=== PATIENT | female | born 1995 | race Two or more races ===

== ENCOUNTER 2018-06-22 12:26 | Emergency (ER) | payer SELFPAY ==
--- NOTE | 2018-06-22 12:58 | ER Document Report ---
ED Psych Disorder / Suicide <JEANINE GUTHRIEI - Last Filed: 06/22/18 18:30> <HOANG LINDER - Last Filed: 06/22/18 19:10> - General Chief Complaint: Suicidal Ideation Stated Complaint: SI Time Seen by Provider: 06/22/18 12:50 Notes: 22-year-old female to the emergency department by [facility] from primary care doctor's office for evaluation of suicidal ideation. Patient states that she has had depression since the age of 15. Has been on and off medications. States that she has a gun in her boyfriend's car and knows how to use it and wants to kill herself (HOANG LINDER) - Related Data Allergies/Adverse Reactions: No Known Allergies Allergy (Unverified 06/22/18 12:29) Past Medical History - General Information source: Patient - Social History Smoking Status: Former Smoker Chew tobacco use (# tins/day): No Frequency of alcohol use: None Drug Abuse: None Lives with: Family Family History: Reviewed & Not Pertinent Patient has suicidal ideation: Yes Patient has homicidal ideation: No Renal/ Medical History: Denies: Hx Peritoneal Dialysis Psychiatric Medical History: Reports: Hx Depression - Anxiety, PTSD, suicidal ideation Past Surgical History: Reports: Hx Tonsillectomy - adnoids <HOANG LINDER - Last Filed: 06/22/18 19:10> Review of Systems - Review of Systems Constitutional: No symptoms reported EENT: No symptoms reported Cardiovascular: No symptoms reported Respiratory: No symptoms reported Gastrointestinal: No symptoms reported Genitourinary: No symptoms reported Female Genitourinary: No symptoms reported Musculoskeletal: No symptoms reported Skin: No symptoms reported Hematologic/Lymphatic: No symptoms reported Neurological/Psychological: Depression, Hallucinations, Other - Suicidal <HOANG LINDER - Last Filed: 06/22/18 19:10> Physical Exam - Vital signs Interpretation: Normal - General General appearance: Appears well, Alert - HEENT Head: Normocephalic, Atraumatic Eyes: Normal Pupils: PERRL - Respiratory Respiratory status: No respiratory distress Chest status: Nontender Breath sounds: Normal Chest palpation: Normal - Cardiovascular Rhythm: Regular Heart sounds: Normal auscultation Murmur: No - Abdominal Inspection: Normal Distension: No distension Bowel sounds: Normal Tenderness: Nontender Organomegaly: No organomegaly - Back Back: Normal, Nontender - Extremities General upper extremity: Normal inspection, Nontender, Normal color, Normal ROM , Normal temperature General lower extremity: Normal inspection, Nontender, Normal color, Normal ROM , Normal temperature, Normal weight bearing. No: Ambreen's sign - Neurological Neuro grossly intact: Yes Cognition: Normal Orientation: AAOx4 Michele Coma Scale Eye Opening: Spontaneous [place] Coma Scale Verbal: Oriented [place] Coma Scale Motor: Obeys Commands Michele Coma Scale Total: 15 Speech: Normal Motor strength normal: LUE, RUE, LLE, RLE Sensory: Normal - Psychological Associated symptoms: Anxious, Auditory hallucinations, Depressed, Flat affect, Tearful - Skin Skin Temperature: Warm Skin Moisture: Dry Skin Color: Normal <HOANG LINDER - Last Filed: 06/22/18 19:10> - Vital signs Vitals: Temp Pulse Resp BP Pulse Ox 98.6 F 85 18 125/79 100 06/22/18 12:33 06/22/18 12:33 06/22/18 12:33 06/22/18 12:33 06/22/18 12:33 Course - Laboratory Result Diagrams: 06/22/18 14:10 06/22/18 14:10 <BONIFACIO GUTHRIE - Last Filed: 06/22/18 18:30> - Laboratory Result Diagrams: 06/22/18 14:10 06/22/18 14:10 <HOANG LINDER - Last Filed: 06/22/18 19:10> - Re-evaluation Re-evalutation: 06/22/18 14:06 Vision with active auditory hallucinations by her account with suicidal ideation. Will need to be placed on IVC at this time. Health is aware. Psych screening labs ordered. 06/22/18 19:07 Mental health has done extensive evaluation on the patient. They have made medication change and recommendations. They do not feel patient needs to be hospitalized at this time. Patient has outpatient resources. Family members have been contacted as well and they are comfortable with the plan. The gun has been removed from patient's access. The patient is happy about the medication recommendation changes. Has follow-up appointment made and available. At this time will follow these recommendations as this is the best we have at this time. Patient has been given instructions that if anything else gets worse that we are always here and we want to see her again. Patient verbalized understanding of these instructions and we will discharge at this time in stable condition. (HOANG LINDER) - Vital Signs Vital signs: Temp Pulse Resp BP Pulse Ox 98.3 F 78 18 122/77 99 06/22/18 17:37 06/22/18 17:37 06/22/18 17:37 06/22/18 17:37 06/22/18 17:37 - Laboratory Laboratory results interpreted by me: 06/22/18 06/22/18 14:10 14:10 RDW 14.4 H Salicylates < 1.0 L Acetaminophen < 10 L Discharge <BONIFACIO GUTHRIE - Last Filed: 06/22/18 18:30> <HOANG LINDER - Last Filed: 06/22/18 19:10> - Discharge Clinical Impression: Post traumatic stress disorder (PTSD) Condition: Good Disposition: HOME, SELF-CARE Additional Instructions: You were seen in the emergency department and evaluated by the medical and behavioral health teams for suicidal ideation, and determined to be appropriate for discharge. You were provided community based outpatient resources and you are encouraged to follow up with [facility] and [facility] for medication management and therapy. You were also provided medications scripts and are encouraged to discuss with provider the effectiveness of medications when you meet with the physician. Medication Recommendations 1. Effexor 37.5 mg daily 2. Buspar 10 mg twice per day DEPRESSION: Your evaluation reveals that you have depression. While symptoms may be vague, they often include disturbance of sleep, fatigue, loss of appetite, and general loss of interest in life. While depression may be a side effect of drugs, or a reaction to a major change in your life, many cases have no known cause. If depression is acute, and related to a major loss in your life, you can expect it to clear completely with time. If you have been depressed a long time , are prone to repeated bouts of depression or low mood, or have been thinking of suicide, get help. Depression can be treated with anti-depressant medication and counselling. Long-term depression will often take a few weeks to clear, even with appropriate medication. Follow-up care is important. SUICIDAL IDEATION: Suicidal ideation is a common medical term for thoughts about suicide, which may be as detailed as a formulated plan, without the suicidal act itself. Although most people who undergo suicidal ideation do not commit suicide, some go on to make suicide attempts. The range of suicidal ideation varies greatly from fleeting to detailed planning, role playing, and unsuccessful attempts. While thoughts about suicide are common, most people do not carry out serious actions to commit suicide. Based upon your evaluation and discussion with you, we do not believe you are currently at risk to act upon your thoughts of suicide. You have agreed to return to the Emergency Department, at any time , if you feel inclined to act upon your suicidal thoughts. Post-Traumatic Stress Disorder You seem to have post-traumatic stress disorder (PTSD). PTSD can cause chronic anxiety, sleeping problems, social withdrawal, and drug abuse. It can occur following a traumatic personal experience such as an accident, rape, assault, or of a loved one, or after experiencing a war or natural disaster. Symptoms may be delayed for days or even years. Emotional numbing, the inability to express grief, is usually the earliest sign. There may be apathy or agitation, aggression, and inability to perform ordinary tasks. Often there are frightening nightmares and sudden, intruding memories of the trauma. Panic attacks and feelings of guilt are common. Alcohol and drug use make post- traumatic stress symptoms worse. Medication may be temporarily necessary to combat anxiety, panic attacks, and depression. Medicine should not be considered a "cure." You must deal with the trauma and prepare to go on. Group therapy is often helpful. This helps you "talk through" the problem with others who share your symptoms. FOLLOW-UP CARE: If you have been referred to a physician for follow-up care, call the physician s office for an appointment as you were instructed or within the next two days. If you experience worsening or a significant change in your symptoms, notify the physician immediately or return to the Emergency Department at any time for re-evaluation. Prescriptions: Buspirone HCl [Buspar 10 mg Tablet] 10 mg PO BID 7 Days #14 tablet Venlafaxine HCl ER [Effexor Xr 37.5 mg Cap.sr] 37.5 mg PO DAILY 7 Days #7 cap.sr.24h Referrals: [facility] [Provider Group] - Follow up in 1 week [facility] [Provider Group] - Follow up in 1 week STANLEY BACON NP [Primary Care Provider] - Follow up in 3-5 days
[2018-06-22 14:33] LABS: ABSOLUTE BASOPHILS # (AUTO) 0.1 10^3/uL (0.0-0.2); ABSOLUTE EOSINOPHILS # (AUTO) 0.2 10^3/uL (0.0-0.6); ABSOLUTE LYMPHOCYTES (AUTO) 1.5 10^3/uL (0.5-4.7); ABSOLUTE MONOCYTES (AUTO) 0.5 10^3/uL (0.1-1.4); ABSOLUTE NEUT (AUTO) 5.1 10^3/uL (1.7-8.2); BASOPHILS % (AUTO) 1.1 % (0-2); EOSINOPHILS % (AUTO) 2.7 % (0-6); HEMATOCRIT 41.2 % (36.0-47.0); HEMOGLOBIN 14.1 g/dL (12.0-15.5); LYMPHOCYTES % (AUTO) 20.4 % (13-45); MEAN CORPUSCULAR HEMOGLOBIN 29.3 pg (27.0-33.4); MEAN CORPUSCULAR HGB CONC 34.1 g/dL (32.0-36.0); MEAN CORPUSCULAR VOLUME 86 fl (80-97); MONOCYTES % (AUTO) 6.2 % (3-13); PLATELET COUNT 363 10^3/uL (150-450); RED CELL DISTRIBUTION WIDTH 14.4 % (11.5-14.0); SEGMENTED NEUTROPHILS % (AUTO) 69.6 % (42-78); TOTAL CELLS COUNTED % (AUTO) 100 %; WHITE BLOOD COUNT 7.4 10^3/uL (4.0-10.5)
[2018-06-22 14:56] LABS: ALANINE AMINOTRANSFERASE 17 U/L (9-52); ALKALINE PHOSPHATASE 50 U/L (38-126); ANION GAP 11 (5-19); ASPARTATE AMINO TRANSFERASE 18 U/L (14-36); BILIRUBIN,DIRECT 0.2 mg/dL (0.0-0.4); BILIRUBIN,TOTAL 0.7 mg/dL (0.2-1.3); BLOOD UREA NITROGEN 7 mg/dL (7-20); CALCIUM 9.4 mg/dL (8.4-10.2); CARBON DIOXIDE 28 mmol/L (22-30); CHLORIDE 104 mmol/L (98-107); GLUCOSE 76 mg/dL (75-110); POTASSIUM 4.4 mmol/L (3.6-5.0); TOTAL PROTEIN 7.4 g/dL (6.3-8.2)
[2018-06-22 14:59] LABS: ACETAMINOPHEN < 10 ug/mL (10-30); ALCOHOL < 10 mg/dL (NONE DETECTED); SALICYLATE < 1.0 mg/dL (2.0-20.0)
[2018-06-22 15:38] LABS: APPEARANCE,URINE CLEAR; BILIRUBIN,URINE NEGATIVE (NEGATIVE); COLOR,URINE YELLOW; GLUCOSE, URINE NEGATIVE (NEGATIVE); KETONES,URINE NEGATIVE (NEGATIVE); LEUKOCYTE ESTERASE,URINE NEGATIVE (NEGATIVE); NITRITE,URINE NEGATIVE (NEGATIVE); PROTEIN,URINE NEGATIVE (NEGATIVE); URINE SPECIFIC GRAVITY 1.014; UROBILINOGEN,URINE NEGATIVE mg/dL (<2.0)
[2018-06-22 15:54] LABS: URINE AMPHETAMINES SCREEN NEGATIVE; URINE BARBITURATES SCREEN NEGATIVE; URINE BENZODIAZEPINES SCREEN UNCONFIRMED POSITIVE; URINE COCAINE SCREEN NEGATIVE; URINE MARIJUANA (THC) SCREEN NEGATIVE; URINE METHADONE SCREEN NEGATIVE; URINE PHENCYCLIDINE SCREEN NEGATIVE
[2018-06-22 17:58] VITALS: BP 122/77
--- NOTE | 2018-06-22 23:38 | EKG REPORT ---
SEVERITY:- NORMAL ECG - SINUS RHYTHM : Confirmed by: Madeline Santillan MD 22-Jun-2018 23:37:57
== END 2018-06-22 19:37 | disposition home or self-care (01) ==
LOC: ER 12:26
DX: F43.10 Post-traumatic stress disorder, unspecified (principal); R45.851 Suicidal ideations
CPT/HCPCS: 36415; 80053; 80307; 81001; 84703; 85025; 93005; 93010; 99285

== ENCOUNTER 2019-08-10 13:57 | Inpatient (IN) | payer MEDICAID ==
[2019-08-10 14:49] LABS: APPEARANCE,URINE CLOUDY; BILIRUBIN,URINE NEGATIVE (NEGATIVE); COLOR,URINE YELLOW; GLUCOSE, URINE NEGATIVE (NEGATIVE); KETONES,URINE NEGATIVE (NEGATIVE); LEUKOCYTE ESTERASE,URINE LARGE (NEGATIVE); NITRITE,URINE NEGATIVE (NEGATIVE); PROTEIN,URINE 100 mg/dL (NEGATIVE); UROBILINOGEN,URINE NEGATIVE mg/dL (<2.0)
[2019-08-10 15:00] LABS: URINE AMPHETAMINES SCREEN NEGATIVE; URINE BARBITURATES SCREEN NEGATIVE; URINE BENZODIAZEPINES SCREEN NEGATIVE; URINE COCAINE SCREEN NEGATIVE; URINE MARIJUANA (THC) SCREEN NEGATIVE; URINE METHADONE SCREEN NEGATIVE; URINE PHENCYCLIDINE SCREEN NEGATIVE
[2019-08-10 15:14] LABS: URINE CREATININE 110.7 mg/dL (16-327)
[2019-08-10] MEDS ORDERED: MAG HYDROX/AL HYDROX/SIMETH SUSP 30 ML UDCUP PO ONE (15:18)
[2019-08-10 15:21] LABS: UR PRO/CREAT RATIO RESULT 2.8 mg/mg (0.0-0.2); URINE PROTEIN 314.6 mg/dL (<12)
[2019-08-10 15:40] LABS: ABSOLUTE EOSINOPHILS # (AUTO) 0.2 10^3/uL (0.0-0.6); ABSOLUTE LYMPHOCYTES (AUTO) 0.9 10^3/uL (0.5-4.7); ABSOLUTE MONOCYTES (AUTO) 0.6 10^3/uL (0.1-1.4); ABSOLUTE NEUT (AUTO) 6.7 10^3/uL (1.7-8.2); BASOPHILS % (AUTO) 0.5 % (0-2); EOSINOPHILS % (AUTO) 2.5 % (0-6); HEMATOCRIT 38.8 % (36.0-47.0); HEMOGLOBIN 13.3 g/dL (12.0-15.5); LYMPHOCYTES % (AUTO) 10.8 % (13-45); MEAN CORPUSCULAR HEMOGLOBIN 29.7 pg (27.0-33.4); MEAN CORPUSCULAR HGB CONC 34.3 g/dL (32.0-36.0); MEAN CORPUSCULAR VOLUME 87 fl (80-97); MONOCYTES % (AUTO) 7.6 % (3-13); PLATELET COUNT 200 10^3/uL (150-450); RED BLOOD COUNT 4.47 10^6/uL (3.72-5.28); SEGMENTED NEUTROPHILS % (AUTO) 78.6 % (42-78); TOTAL CELLS COUNTED % (AUTO) 100 %; WHITE BLOOD COUNT 8.6 10^3/uL (4.0-10.5)
[2019-08-10 15:59] LABS: ALBUMIN 2.9 g/dL (3.5-5.0); ALKALINE PHOSPHATASE 88 U/L (38-126); ANION GAP 8 (5-19); ASPARTATE AMINO TRANSFERASE 20 U/L (14-36); BILIRUBIN,DIRECT 0.1 mg/dL (0.0-0.4); BILIRUBIN,TOTAL 0.5 mg/dL (0.2-1.3); BLOOD UREA NITROGEN 8 mg/dL (7-20); CARBON DIOXIDE 21 mmol/L (22-30); CHLORIDE 105 mmol/L (98-107); GLUCOSE 101 mg/dL (75-110); POTASSIUM 4.1 mmol/L (3.6-5.0); TOTAL PROTEIN 5.3 g/dL (6.3-8.2)
[2019-08-10] MEDS ORDERED: CEFTRIAXONE INJ 1000 MG VIAL IM ONE ×2 (16:55→17:30)
[2019-08-10] MEDS ORDERED: LIDOCAINE 1% INJ-PF (10 MG/ML) 30 ML SDV INJ ONE (16:55)
[2019-08-10] MEDS ORDERED: LIDOCAINE HCL 1% INJ (FOR 1 GM VIAL) INJ ONE (17:30)
[2019-08-10] MEDS ORDERED: MAG HYDROX/AL HYDROX/SIMETH SUSP 30 ML UDCUP ONE (17:51)
--- NOTE | 2019-08-10 20:02 | Non Stress Test Report ---
Non Stress Test Datetime Report Generated by CPN: 08/10/2019 20:02 MONITORING Monitor Explained: Monitor Explained; Test Explained; Patient Verbalized Understanding Time on Monitor: 08/10/2019 15:46 Time off Monitor: 08/10/2019 16:24 NST Duration: 38 NST INTERVENTIONS NST Interventions: PO Hydration; Reposition Patient Physician Notified NST: DR CEJA BABY A: [id number] BABY A Movement : Present Contraction Frequency : IRREG FHR Baseline : 135 Accelerations : 15X15 Decelerations : None Variability : Moderate 6-25bpm NST Review: Meets Criteria for Reactive NST NST Review and Verified By : Joann Yates RN NST Results: Reactive NST REPORT Report Trigger: Send Report
[2019-08-11] MEDS ORDERED: ACETAMINOPHEN 325 MG TABLET ONE (03:56)
[2019-08-11] MEDS ORDERED: ACETAMINOPHEN 325 MG TABLET PO PRN (04:01)
[2019-08-11 06:27] LABS: ABSOLUTE BASOPHILS # (AUTO) 0.1 10^3/uL (0.0-0.2); ABSOLUTE EOSINOPHILS # (AUTO) 0.3 10^3/uL (0.0-0.6); ABSOLUTE LYMPHOCYTES (AUTO) 1.6 10^3/uL (0.5-4.7); ABSOLUTE MONOCYTES (AUTO) 0.8 10^3/uL (0.1-1.4); ABSOLUTE NEUT (AUTO) 6.5 10^3/uL (1.7-8.2); BASOPHILS % (AUTO) 0.5 % (0-2); EOSINOPHILS % (AUTO) 3.4 % (0-6); HEMOGLOBIN 12.4 g/dL (12.0-15.5); LYMPHOCYTES % (AUTO) 17.4 % (13-45); MEAN CORPUSCULAR HEMOGLOBIN 30.3 pg (27.0-33.4); MEAN CORPUSCULAR HGB CONC 35.3 g/dL (32.0-36.0); MEAN CORPUSCULAR VOLUME 86 fl (80-97); MONOCYTES % (AUTO) 8.5 % (3-13); PLATELET COUNT 179 10^3/uL (150-450); RED BLOOD COUNT 4.08 10^6/uL (3.72-5.28); RED CELL DISTRIBUTION WIDTH 14.3 % (11.5-14.0); SEGMENTED NEUTROPHILS % (AUTO) 70.2 % (42-78); TOTAL CELLS COUNTED % (AUTO) 100 %; WHITE BLOOD COUNT 9.2 10^3/uL (4.0-10.5)
[2019-08-11 06:43] LABS: ALBUMIN 2.6 g/dL (3.5-5.0); ALKALINE PHOSPHATASE 84 U/L (38-126); ANION GAP 7 (5-19); ASPARTATE AMINO TRANSFERASE 19 U/L (14-36); BILIRUBIN,DIRECT 0.1 mg/dL (0.0-0.4); BILIRUBIN,TOTAL 0.5 mg/dL (0.2-1.3); BLOOD UREA NITROGEN 7 mg/dL (7-20); CARBON DIOXIDE 20 mmol/L (22-30); CHLORIDE 107 mmol/L (98-107); GLUCOSE 74 mg/dL (75-110); POTASSIUM 4.4 mmol/L (3.6-5.0); TOTAL PROTEIN 4.9 g/dL (6.3-8.2); URIC ACID 6.8 mg/dL (2.5-6.2)
[2019-08-11] MEDS ORDERED: OXYTOCIN/NORMAL SALINE 20 UNIT/1,000 ML RTUINJ IV PRN (10:33)
[2019-08-11] MEDS ORDERED: RINGERS SOLUTION,LACTATED 300 ML IV ONE (10:33)
[2019-08-11] MEDS ORDERED: DINOPROSTONE 10 MG VAGINAL INSERT.SR PV PRN (10:33)
--- NOTE | 2019-08-11 10:36 | PDOC PROGRESS REPORT ---
Subjective Progress Note for:: 08/11/19 Subjective:: We discussed the diagnosis of mild preeclampsia. She would like to start the induction tonight. Reason For Visit: Physical Exam - Physical Exam Vital Signs: Temp Pulse Resp BP Pulse Ox 97.5 F 89 20 139/95 H 96 08/11/19 08:03 08/11/19 08:03 08/11/19 08:03 08/11/19 08:03 08/11/19 08:03 Intake & Output 08/10/19 08/11/19 08/12/19 06:59 06:59 06:59 Intake Total 580 Balance 580 Weight 79.8 kg Result Laboratory Results: 08/11/19 05:43 08/11/19 05:43 08/10/19 08/10/19 08/10/19 14:15 15:06 15:06 WBC 8.6 RBC 4.47 Hgb 13.3 Hct 38.8 MCV 87 MCH 29.7 MCHC 34.3 RDW 14.0 Plt Count 200 Seg Neutrophils % 78.6 H Sodium 133.8 L Potassium 4.1 Chloride 105 Carbon Dioxide 21 L Anion Gap 8 BUN 8 Creatinine 0.72 Est GFR ( Amer) > 60 Glucose 101 Uric Acid 7.0 H Calcium 10.0 Total Bilirubin 0.5 AST 20 Alkaline Phosphatase 88 Total Protein 5.3 L Albumin 2.9 L Urine Color YELLOW Urine Appearance CLOUDY Urine pH 6.0 Ur Specific [place] 1.010 Urine Protein 100 H Urine Glucose (UA) NEGATIVE Urine Ketones NEGATIVE Urine Blood NEGATIVE Urine Nitrite NEGATIVE Ur Leukocyte Esterase LARGE H Urine WBC (Auto) 165 Urine RBC (Auto) 2 08/11/19 08/11/19 05:43 05:43 WBC 9.2 RBC 4.08 Hgb 12.4 Hct 35.0 L MCV 86 MCH 30.3 MCHC 35.3 RDW 14.3 H Plt Count 179 Seg Neutrophils % 70.2 Sodium 134.0 L Potassium 4.4 Chloride 107 Carbon Dioxide 20 L Anion Gap 7 BUN 7 Creatinine 0.62 Est GFR ( Amer) > 60 Glucose 74 L Uric Acid 6.8 H Calcium 9.0 Total Bilirubin 0.5 AST 19 Alkaline Phosphatase 84 Total Protein 4.9 L Albumin 2.6 L Urine Color Urine Appearance Urine pH Ur Specific [place] Urine Protein Urine Glucose (UA) Urine Ketones Urine Blood Urine Nitrite Ur Leukocyte Esterase Urine WBC (Auto) Urine RBC (Auto) Assessment & Plan - Diagnosis (1) Proteinuria Qualifiers: Trimester: third trimester Is this a current diagnosis for this admission?: Yes - Plan Summary Plan Summary: proceed with the induction tonight.
[2019-08-11] MEDS ORDERED: PROMETHAZINE HCL 25 MG TABLET PO PRN (15:36)
[2019-08-11] MEDS: RINGERS SOLUTION,LACTATED 1,000 ML IV PRN (19:56)
[2019-08-11] MEDS ORDERED: PENICILLIN G POTASSIUM 5,000,000 UNIT in DEXTROSE 5%-WATER 100 ML IV ONE (20:15)
[2019-08-11] MEDS ORDERED: DINOPROSTONE 10 MG VAGINAL INSERT.SR ONE (20:18)
[2019-08-12] MEDS ORDERED: ZOLPIDEM TARTRATE 5 MG TABLET ONE (00:30)
[2019-08-12] MEDS ORDERED: ZOLPIDEM TARTRATE 5 MG TABLET PO ONE (00:32)
[2019-08-12] MEDS ORDERED: HYDRALAZINE HCL INJ/PF 20 MG/1 ML SDV IV PRN (01:29)
[2019-08-12] MEDS: RINGERS SOLUTION,LACTATED 1,000 ML IV PRN (03:46)
--- NOTE | 2019-08-12 08:41 | PDOC H&P ---
History of Present Illness Admission Date/PCP: 08/10/19 16:56 Evaluation and results of 24 hour urine: Rule out preeclampsia History of Present Illness: SAMEERA RAY is a 23 year old female sent from the office for b/p evaluation and results of 24 hr urine. Review of chart showed one elevated b/p in office to day and protein on urine dip. Prior B/P all normotensive other than one b/p today in the office. Here in triage, she has been normotensive. Denies WOODRUFF, CP, SOB, RUQ pain, N/v or vision changes. Good FM. No ctx, VB or loss of fluid Past Medical History Psychiatric Medical History: Reports: Depression - Anxiety, PTSD, suicidal ideation Past Surgical History Past Surgical History: Reports: Tonsillectomy - adnoids Social History Smoking Status: Never Smoker Family History Family History: Reviewed & Not Pertinent, CAD, DM, Hypertension - Mother with CAD, DM and HTN Parental Family History Reviewed: No Children Family History Reviewed: No Sibling(s) Family History Reviewed.: No - Medication/Allergy Home Medications: Vit,Calc76/Iron/Folic [Prenatabs Rx Tablet] 1 tab PO DAILY 08/12/19 Allergies/Adverse Reactions: No Known Allergies Allergy (Unverified 06/22/18 12:29) Physical Exam - Physical Exam Vital Signs: Temp Pulse Resp BP Pulse Ox 98.9 F 85 18 147/98 H 100 08/10/19 20:17 08/10/19 20:17 08/10/19 20:17 08/10/19 20:17 08/10/19 20:17 Intake & Output 08/09/19 08/10/19 08/11/19 06:59 06:59 06:59 Weight 79.8 kg General appearance: PRESENT: no acute distress, well-developed, well-nourished Respiratory exam: PRESENT: clear to auscultation selin Cardiovascular exam: PRESENT: RRR, +S1, +S2 GI/Abdominal exam: PRESENT: normal bowel sounds, soft, other - NO tenderness on palpation Extremities exam: PRESENT: full ROM, other - No clonus. Reflexes 1/4 patellar bilaterally. ABSENT: calf tenderness, clubbing, pedal edema Skin exam: PRESENT: dry, warm Result Laboratory Results: 08/10/19 15:06 08/10/19 15:06 08/10/19 08/10/1919 14:15 15:06 15:06 WBC 8.6 RBC 4.47 Hgb 13.3 Hct 38.8 MCV 87 MCH 29.7 MCHC 34.3 RDW 14.0 Plt Count 200 Seg Neutrophils % 78.6 H Sodium 133.8 L Potassium 4.1 Chloride 105 Carbon Dioxide 21 L Anion Gap 8 BUN 8 Creatinine 0.72 Est GFR ( Amer) > 60 Glucose 101 Uric Acid 7.0 H Calcium 10.0 Total Bilirubin 0.5 AST 20 Alkaline Phosphatase 88 Total Protein 5.3 L Albumin 2.9 L Urine Color YELLOW Urine Appearance CLOUDY Urine pH 6.0 Ur Specific [place] 1.010 Urine Protein 100 H Urine Glucose (UA) NEGATIVE Urine Ketones NEGATIVE Urine Blood NEGATIVE Urine Nitrite NEGATIVE Ur Leukocyte Esterase LARGE H Urine WBC (Auto) 165 Urine RBC (Auto) 2 Assessment & Plan - Diagnosis (1) Proteinuria Qualifiers: Trimester: third trimester Is this a current diagnosis for this admission?: Yes - Inpatient Certification Medical Necessity: Other - Preeclampsia evaluation inpatient with surveillance - Plan Summary Plan Summary: 23 yo admitted for preeclampsia evaluation -Admit to Antepartum unit -VS Q 4 hrs. Normotensive since admission. On review of office records and triage here, only a single elevated b/p this . Monitor b/p overnight and call provider director of slot operations for systolic b/p >160 or diastolic > 110 -24 hr urine was 314 today but urinalysis shows signs of infection -UTI-rocephin 1 gm IM now. UC sent WIll monitor for progression to PreE and plan delivery accordingly. Chart review at 2200 and elevated b/p x 2 noted. none severe. discussed with patient. Asymptomatic. discussed timing of IOL for mild preeclampsia. She is 38.2 wks EGA. She would like to wait until AM rather than tonight so she does not have to wake up her family, who she feels will collins in. Will monitor b/p overnight. If remain only mildly elevated then will plan IOL in am for mild preE. Plan for Cytotec 25 mcg PV Q 4 hrs . Mag sulfate only if B/P's become severe or severe features.
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
[2019-08-12] MEDS ORDERED: MISOPROSTOL 0.2 MG TABLET PV SCH (09:30)
[2019-08-12] MEDS ORDERED: OXYTOCIN 10 UNIT/ML VIAL ONE (09:53)
[2019-08-12] MEDS ORDERED: MISOPROSTOL 0.2 MG TABLET ONE (09:54)
[2019-08-12] MEDS ORDERED: LIDOCAINE 1% INJ-PF (10 MG/ML) 30 ML SDV ONE (09:54)
[2019-08-12] MEDS ORDERED: OXYTOCIN/NORMAL SALINE 20 UNIT/1,000 ML RTUINJ ONE (09:54)
[2019-08-12] MEDS ORDERED: PENICILLIN G-K 5 MILLION UNIT VIAL ONE ×4 (09:55→22:20)
[2019-08-12] MEDS ORDERED: MISOPROSTOL 0.1 MG TABLET ONE ×2 (09:55→15:11)
[2019-08-12] MEDS: MISOPROSTOL 0.1 MG TABLET PV SCH ×2 (11:05→15:28)
[2019-08-12] MEDS: PENICILLIN G-K 5 MILLION UNIT VIAL IV SCH (18:10)
[2019-08-12] MEDS ORDERED: PHENYLEPHRINE HCL INJ/PF 10 MG/1 ML SDV ONE (20:14)
[2019-08-12] MEDS ORDERED: FENTANYL/BUPIVACAINE/NS/PF 300 MCG/150 ML RTUINJ EPI ONE (20:15)
[2019-08-12] MEDS ORDERED: FENTANYL CITRATE INJ/PF 100 MCG/2 ML AMPUL ONE (20:15)
[2019-08-12] MEDS ORDERED: EPHEDRINE SULFATE INJ 50 MG/1 ML AMPULE ONE ×2 (20:15→21:39)
[2019-08-12] MEDS ORDERED: BUPIVACAINE HCL 0.25 % INJ/PF (2.5 MG/1 ML) 30 ML VIAL ONE (20:15)
[2019-08-12] MEDS ORDERED: HYDRALAZINE HCL INJ/PF 20 MG/1 ML SDV ONE (20:50)
[2019-08-12] MEDS ORDERED: HYDRALAZINE HCL INJ/PF 20 MG/1 ML SDV IV ONE ×2 (20:51→23:12)
[2019-08-12 21:30] LABS: HEMATOCRIT 40.7 % (36.0-47.0); HEMOGLOBIN 14.2 g/dL (12.0-15.5); MEAN CORPUSCULAR HEMOGLOBIN 29.8 pg (27.0-33.4); MEAN CORPUSCULAR HGB CONC 34.9 g/dL (32.0-36.0); MEAN CORPUSCULAR VOLUME 85 fl (80-97); PLATELET COUNT 203 10^3/uL (150-450); RED BLOOD COUNT 4.78 10^6/uL (3.72-5.28); WHITE BLOOD COUNT 15.7 10^3/uL (4.0-10.5)
[2019-08-12 21:52] LABS: ALKALINE PHOSPHATASE 108 U/L (38-126); ANION GAP 9 (5-19); ASPARTATE AMINO TRANSFERASE 22 U/L (14-36); BILIRUBIN,DIRECT 0.1 mg/dL (0.0-0.4); BILIRUBIN,TOTAL 0.6 mg/dL (0.2-1.3); BLOOD UREA NITROGEN 7 mg/dL (7-20); CALCIUM 9.8 mg/dL (8.4-10.2); CARBON DIOXIDE 19 mmol/L (22-30); CHLORIDE 106 mmol/L (98-107); GLUCOSE 79 mg/dL (75-110); POTASSIUM 4.3 mmol/L (3.6-5.0); TOTAL PROTEIN 5.6 g/dL (6.3-8.2)
[2019-08-12] MEDS ORDERED: HYDROXYZINE PAMOATE 50 MG CAPSULE ONE (23:10)
[2019-08-12] MEDS ORDERED: HYDROXYZINE PAMOATE 50 MG CAPSULE PO ONE (23:45)
[2019-08-13] MEDS ORDERED: OXYTOCIN/NORMAL SALINE 20 UNIT/1,000 ML RTUINJ IV PRN (00:43)
[2019-08-13] MEDS ORDERED: ACETAMINOPHEN 650 MG SUPP.RECT PR PRN (00:43)
[2019-08-13] MEDS ORDERED: PROMETHAZINE HCL INJ 25 MG/1 ML VIAL IV PRN (00:43)
[2019-08-13] MEDS ORDERED: BENZOCAINE/MENTHOL AEROSOL SPRAY 56 ML TOP PRN (00:43)
[2019-08-13] MEDS ORDERED: DIPHENHYDRAMINE HCL 25 MG CAPSULE PO PRN (00:43)
[2019-08-13] MEDS ORDERED: GLYCERIN/WITCH HAZEL LEAF 1 EACH MED..WIPE TP PRN (00:43)
[2019-08-13] MEDS ORDERED: MAGNESIUM HYDROXIDE SUSP 30 ML UDCUP PO PRN (00:43)
[2019-08-13] MEDS ORDERED: ACETAMINOPHEN WITH CODEINE #3 TABLET PO PRN ×2 (00:43)
[2019-08-13] MEDS ORDERED: ZOLPIDEM TARTRATE 5 MG TABLET PO PRN (00:43)
[2019-08-13] MEDS ORDERED: NA PHOS,M-B/NA PHOS,DI-BA (ADULT) 133 ML ENEMA PR PRN (00:43)
[2019-08-13] MEDS ORDERED: DIPH/PERTUSS(ACELL)/TETANUS VAC/PF 0.5 ML SYR (>=10YO) IM PRN (00:43)
[2019-08-13] MEDS ORDERED: MEASLES,MUMPS&RUBELLA VACC/PF 0.5 ML VIAL SUBCUT PRN (00:43)
[2019-08-13] MEDS ORDERED: PROMETHAZINE HCL 25 MG SUPP.RECT PR PRN (00:43)
[2019-08-13] MEDS ORDERED: PROMETHAZINE HCL 25 MG TABLET PO PRN (00:43)
[2019-08-13] MEDS ORDERED: PSEUDOEPHEDRINE HCL 30 MG TABLET PO PRN (00:43)
[2019-08-13] MEDS ORDERED: DIBUCAINE 1% OINTMENT 56 GM TP PRN (00:43)
--- NOTE | 2019-08-13 01:54 | Warning Signs in Babies ---
VOD Warning Signs Datetime Report Generated by [facility]: 08/13/2019 01:54 VOD#608 -Warning Signs in Babies: Viewed with Parent(s)/Family (08/13/2019 01:45:Shelly Fish RN)
[2019-08-13] MEDS ORDERED: LABETALOL HCL 200 MG TABLET ONE (02:06)
[2019-08-13] MEDS ORDERED: LABETALOL HCL 200 MG TABLET PO ONE (02:15)
[2019-08-13] MEDS: IBUPROFEN 800 MG TABLET PO SCH ×3 (05:22→21:28)
[2019-08-13] MEDS: PENICILLIN G POTASSIUM 2,500,000 UNIT in DEXTROSE 5%-WATER 50 ML IV SCH ×2 (07:40→19:46)
[2019-08-13] MEDS: PENICILLIN G-K 5 MILLION UNIT VIAL IV SCH ×2 (08:44→08:51)
[2019-08-13] MEDS: MISOPROSTOL 0.1 MG TABLET PV SCH (08:45)
[2019-08-13] MEDS: SENNOSIDES/DOCUSATE 8.6-50 MG 1 EACH TABLET PO SCH (09:11)
[2019-08-13] MEDS: DOCUSATE SODIUM 100 MG CAPSULE PO SCH ×2 (09:11→17:56)
[2019-08-13] MEDS: PRENATAL VITAMIN W DHA CAPSULE PO SCH (09:11)
[2019-08-13] MEDS: FERROUS SULFATE 325 MG TABLET PO SCH ×2 (09:11→17:56)
[2019-08-13] MEDS: FAMOTIDINE 20 MG TABLET PO SCH ×2 (09:11→21:29)
--- NOTE | 2019-08-13 09:56 | PDOC PROGRESS REPORT ---
Subjective-OB Progress Note for:: 08/13/19 - Delivery Day, IOL for Pre-eclampsia, doing well, up voiding, no complaints, breast and bottlefeeding, O+. Rubella Immune Physical Exam (OB) Vital Signs: Temp Pulse Resp BP Pulse Ox 98.2 F 105 H 16 135/92 H 99 08/13/19 08:00 08/13/19 08:00 08/13/19 08:00 08/13/19 08:00 08/13/19 08:00 Intake & Output 08/12/19 08/13/19 08/14/19 06:59 06:59 06:59 Intake Total 979 1000 Output Total 1 Balance 978 1000 - General General Appearance: Appears well, Alert In distress: None - PIH/Pre-Eclampsia Headache: Absent Epigastric Pain: No Visual Changes: No - Abdomen Hernia Present: No - Respiratory Respiratory Status: No respiratory distress - Abdominal Inspection: Normal Distension: No distension - Genitourinary Genitourinary Note: voiding - Extremities Upper extremity: Normal inspection Lower extremities: Edema - +1 - Neurological Cognition: Normal Orientation: AAOx4 - Psychological Associated symptoms: Normal affect, Normal mood - Skin Skin Temperature: Warm Skin Moisture: Dry Objective-Diagnostic Laboratory: 08/12/19 21:23 08/12/19 21:23 08/12/19 08/12/19 21:23 21:23 WBC 15.7 H RBC 4.78 Hgb 14.2 Hct 40.7 MCV 85 MCH 29.8 MCHC 34.9 RDW 14.0 Plt Count 203 Sodium 134.0 L Potassium 4.3 Chloride 106 Carbon Dioxide 19 L Anion Gap 9 BUN 7 Creatinine 0.64 Est GFR ( Amer) > 60 Glucose 79 Calcium 9.8 Total Bilirubin 0.6 AST 22 Alkaline Phosphatase 108 Total Protein 5.6 L Albumin 3.0 L Assessment and Plan(PN) - Assessment and Plan (1) (normal spontaneous vaginal delivery) Is this a current diagnosis for this admission?: Yes (2) Pre-eclampsia during in third trimester, antepartum Is this a current diagnosis for this admission?: Yes (3) Proteinuria Qualifiers: Trimester: third trimester Is this a current diagnosis for this admission?: Yes - Time Spent with Patient Time with patient: Less than 15 minutes Medications reviewed and adjusted accordingly: Yes - Disposition Anticipated Discharge: Home Within: within 48 hours
[2019-08-13] MEDS: LABETALOL HCL 200 MG TABLET PO SCH ×2 (13:28→21:30)
[2019-08-13] MEDS: HYDROXYZINE PAMOATE 50 MG CAPSULE PO SCH (21:52)
[2019-08-14] MEDS: LABETALOL HCL 200 MG TABLET PO SCH ×3 (05:19→23:17)
[2019-08-14] MEDS: IBUPROFEN 800 MG TABLET PO SCH ×3 (05:19→23:15)
[2019-08-14 06:53] LABS: HEMATOCRIT 34.7 % (36.0-47.0); MEAN CORPUSCULAR HEMOGLOBIN 29.7 pg (27.0-33.4); MEAN CORPUSCULAR VOLUME 87 fl (80-97); PLATELET COUNT 181 10^3/uL (150-450); RED BLOOD COUNT 3.97 10^6/uL (3.72-5.28); RED CELL DISTRIBUTION WIDTH 14.4 % (11.5-14.0); WHITE BLOOD COUNT 12.4 10^3/uL (4.0-10.5)
[2019-08-14 07:13] LABS: HEMOGLOBIN 11.8 g/dL (12.0-15.5)
[2019-08-14] MEDS: FERROUS SULFATE 325 MG TABLET PO SCH ×2 (10:14→17:35)
[2019-08-14] MEDS: SENNOSIDES/DOCUSATE 8.6-50 MG 1 EACH TABLET PO SCH (10:14)
[2019-08-14] MEDS: PRENATAL VITAMIN W DHA CAPSULE PO SCH (10:14)
[2019-08-14] MEDS: FAMOTIDINE 20 MG TABLET PO SCH ×2 (10:14→23:16)
[2019-08-14] MEDS: DOCUSATE SODIUM 100 MG CAPSULE PO SCH ×2 (10:14→17:35)
--- NOTE | 2019-08-14 14:46 | PDOC PROGRESS REPORT ---
Subjective-OB Progress Note for:: 08/14/19 Subjective: reports bleeding slowing, pain controlled with current meds, denies needs Physical Exam (OB) Vital Signs: Temp Pulse Resp BP Pulse Ox 97.8 F 85 16 135/92 H 98 08/14/19 07:49 08/14/19 07:49 08/14/19 07:49 08/14/19 07:49 08/14/19 07:49 Intake & Output 08/13/19 08/14/19 08/15/19 06:59 06:59 06:59 Intake Total 1600 Balance 1600 - Abdomen Description: Soft, Round Fundal Description: Firm, Midline Fundal Height: u/u - u/2 - Abdominal Distension: No distension Tenderness: Nontender - Extremities Lower extremities: Ambreen's sign - neg Calf: Normal, Nontender Objective-Diagnostic Laboratory: 08/14/19 06:37 08/12/19 21:23 08/14/19 06:37 WBC 12.4 H RBC 3.97 Hgb 11.8 L D Hct 34.7 L MCV 87 MCH 29.7 MCHC 34.0 RDW 14.4 H Plt Count 181 Assessment and Plan(PN) - Assessment and Plan (1) (normal spontaneous vaginal delivery) Is this a current diagnosis for this admission?: Yes - Time Spent with Patient Time with patient: Less than 15 minutes Medications reviewed and adjusted accordingly: Yes - Disposition Anticipated Discharge: Home Within: within 24 hours
[2019-08-14] MEDS: HYDROXYZINE PAMOATE 50 MG CAPSULE PO SCH (23:15)
[2019-08-15] MEDS: LABETALOL HCL 200 MG TABLET PO SCH ×3 (06:12→22:15)
[2019-08-15] MEDS: IBUPROFEN 800 MG TABLET PO SCH ×3 (06:12→22:15)
[2019-08-15] MEDS: FAMOTIDINE 20 MG TABLET PO SCH ×2 (10:03→22:15)
[2019-08-15] MEDS: DOCUSATE SODIUM 100 MG CAPSULE PO SCH ×2 (10:03→17:41)
[2019-08-15] MEDS: PRENATAL VITAMIN W DHA CAPSULE PO SCH (10:03)
[2019-08-15] MEDS: FERROUS SULFATE 325 MG TABLET PO SCH ×2 (10:03→17:40)
[2019-08-15] MEDS: SENNOSIDES/DOCUSATE 8.6-50 MG 1 EACH TABLET PO SCH (10:03)
[2019-08-15] MEDS ORDERED: NIFEDIPINE 30 MG TAB.ER.24 PO ONE ×2 (11:10→15:30)
--- NOTE | 2019-08-15 17:15 | PDOC PROGRESS REPORT ---
Subjective-OB Progress Note for:: 08/15/19 Subjective: 23yo G2 now P1 s/p ppd2. Ambulating and voiding without difficulty. Reports pain well controlled with medication. Denies any concerns at this time. Baby under bili lights in room. Physical Exam (OB) Vital Signs: Temp Pulse Resp BP Pulse Ox 97.8 F 92 16 133/82 H 100 08/15/19 11:28 08/15/19 15:00 08/15/19 11:28 08/15/19 15:00 08/15/19 15:00 Intake & Output 08/14/19 08/15/19 08/16/19 06:59 06:59 06:59 Intake Total 1600 240 Balance 1600 240 - General General Appearance: Appears well In distress: None - PIH/Pre-Eclampsia DTR's: 1 + Clonus: Negative Headache: Absent Epigastric Pain: No Visual Changes: No - Episiotomy/Laceration Site Condition: Well Approximated - Lochia Lochia Amount: Small 10-25 ml Lochia Color: Rubra/Red - Abdomen Description: Soft Hernia Present: No Fundal Description: Firm, Midline Fundal Height: u/u - u/2 - Respiratory Respiratory Status: No respiratory distress - Extremities Upper extremity: Normal inspection Lower extremities: Normal inspection - Neurological Cognition: Normal Orientation: AAOx4 - Psychological Associated symptoms: Normal affect, Normal mood Objective-Diagnostic Laboratory: 08/14/19 06:37 08/12/19 21:23 Assessment and Plan(PN) - Assessment and Plan (1) Obstetric labial laceration, delivered, current hospitalization Is this a current diagnosis for this admission?: Yes Plan: routine pp care. Continue to monitor for s/s of infection (2) Perineal laceration during delivery, delivered Is this a current diagnosis for this admission?: Yes Plan: routine pp care. Continue to monitor for s/s of infection (3) (normal spontaneous vaginal delivery) Is this a current diagnosis for this admission?: Yes Plan: routine pp care (4) Pre-eclampsia during in third trimester, antepartum Is this a current diagnosis for this admission?: Yes Plan: bps elevated today, procardia added. Discussed with Dr. Mcclendon who is the OB innovation manager today. Continue to monitor for s/s of pp pre-e, plan on discharge tomorrow with well controlled bps - Time Spent with Patient Time with patient: 15-25 minutes Medications reviewed and adjusted accordingly: Yes - Disposition Anticipated Discharge: Home Within: within 24 hours
[2019-08-15] MEDS: HYDROXYZINE PAMOATE 50 MG CAPSULE PO SCH (22:16)
[2019-08-16] MEDS: IBUPROFEN 800 MG TABLET PO SCH ×2 (06:02→14:38)
[2019-08-16] MEDS: LABETALOL HCL 200 MG TABLET PO SCH ×2 (06:02→14:42)
[2019-08-16] MEDS ORDERED: NIFEDIPINE 30 MG TAB.ER.24 PO SCH (10:00)
[2019-08-16] MEDS: FAMOTIDINE 20 MG TABLET PO SCH (10:42)
[2019-08-16] MEDS: PRENATAL VITAMIN W DHA CAPSULE PO SCH (10:42)
[2019-08-16] MEDS: FERROUS SULFATE 325 MG TABLET PO SCH (10:42)
[2019-08-16] MEDS: DOCUSATE SODIUM 100 MG CAPSULE PO SCH (10:45)
--- NOTE | 2019-08-16 10:56 | PDOC PROGRESS REPORT ---
Subjective-OB Progress Note for:: 08/16/19 Subjective: Doing well, no c/o, ready to go home, breast/bottle feeding Physical Exam (OB) Vital Signs: Temp Pulse Resp BP Pulse Ox 97.4 F 84 18 142/92 H 98 08/16/19 04:20 08/16/19 04:20 08/16/19 04:20 08/16/19 04:20 08/16/19 04:20 Intake & Output 08/15/19 08/16/19 08/17/19 06:59 06:59 06:59 Intake Total 240 540 Balance 240 540 - PIH/Pre-Eclampsia DTR's: 1 + Clonus: Negative Headache: Absent Epigastric Pain: No Visual Changes: No - Lochia Lochia Amount: Small 10-25 ml Lochia Color: Rubra/Red - Abdomen Description: Soft Hernia Present: No Fundal Description: Firm, Midline Fundal Height: u/u - u/2 Objective-Diagnostic Laboratory: 08/14/19 06:37 08/12/19 21:23 Assessment and Plan(PN) - Assessment and Plan (1) (normal spontaneous vaginal delivery) Is this a current diagnosis for this admission?: Yes (2) Obstetric labial laceration, delivered, current hospitalization Is this a current diagnosis for this admission?: Yes (3) Pre-eclampsia during in third trimester, antepartum Is this a current diagnosis for this admission?: Yes (4) Proteinuria Qualifiers: Trimester: third trimester Is this a current diagnosis for this admission?: Yes - Time Spent with Patient Time with patient: Less than 15 minutes Medications reviewed and adjusted accordingly: Yes - Disposition Anticipated Discharge: Home Within: within 24 hours
--- NOTE | 2019-08-16 11:01 | PDOC DISCHARGE SUMMARY ---
Impression - Admit/DC Date/PCP Admission Date/Primary Care Provider: 08/11/19 18:01 TJ MARIE MD Discharge Date: 08/16/19 - Discharge Diagnosis (1) (normal spontaneous vaginal delivery) Is this a current diagnosis for this admission?: Yes (2) Obstetric labial laceration, delivered, current hospitalization Is this a current diagnosis for this admission?: Yes (3) Pre-eclampsia during in third trimester, antepartum Is this a current diagnosis for this admission?: Yes (4) Proteinuria Is this a current diagnosis for this admission?: Yes - Additional Information Resuscitation Status: Full Code Discharge Diet: Regular Discharge Activity: Activity As Tolerated, No tub bath Referrals: [facility] [Provider Group] - 09/11/19 9:00 am (PLEASE CALL THE OFFICE FOR ANY QUESTIONS AND CONCERN. AND YOU HAVE A BLOOD PRESSURE CHECK. 08/17/2019 @13:30 pt to be seen in office in 1 week to check BP ) Prescriptions: Labetalol HCl [Normodyne 200 mg Tablet] 100 mg PO Q8 #90 tablet Home Medications: Vit,Calc76/Iron/Folic [Prenatabs Rx Tablet] 1 tab PO DAILY 08/12/19 Labetalol HCl [Normodyne 200 mg Tablet] 100 mg PO Q8 #90 tablet 08/16/19 HPI Gestational Age: 38.3 Reason(s) for Admission: Induction of Labor, Group B Strep Positive Admission Note: Pre-eclampsia Procedures: NST, Ultrasound Intrapartum Procedure(s): Spontaneous Vaginal Delivery Complication(s): Laceration-Perineal Laceration-Degree: 1st Hospital Course Hospital Course: routine, meds for BP Results Laboratory Results: WBC 12.4 10^3/uL (4.0-10.5) H 08/14/19 06:37 RBC 3.97 10^6/uL (3.72-5.28) 08/14/19 06:37 Hgb 11.8 g/dL (12.0-15.5) L D 08/14/19 06:37 Hct 34.7 % (36.0-47.0) L 08/14/19 06:37 MCV 87 fl (80-97) 08/14/19 06:37 MCH 29.7 pg (27.0-33.4) 08/14/19 06:37 MCHC 34.0 g/dL (32.0-36.0) 08/14/19 06:37 RDW 14.4 % (11.5-14.0) H 08/14/19 06:37 Plt Count 181 10^3/uL (150-450) 08/14/19 06:37 Lymph % (Auto) 17.4 % (13-45) 08/11/19 05:43 [place] % (Auto) 8.5 % (3-13) 08/11/19 05:43 Eos % (Auto) 3.4 % (0-6) 08/11/19 05:43 Baso % (Auto) 0.5 % (0-2) 08/11/19 05:43 Absolute Neuts (auto) 6.5 10^3/uL (1.7-8.2) 08/11/19 05:43 Absolute Lymphs (auto) 1.6 10^3/uL (0.5-4.7) 08/11/19 05:43 Absolute Monos (auto) 0.8 10^3/uL (0.1-1.4) 08/11/19 05:43 Absolute Eos (auto) 0.3 10^3/uL (0.0-0.6) 08/11/19 05:43 Absolute Basos (auto) 0.1 10^3/uL (0.0-0.2) 08/11/19 05:43 Seg Neutrophils % 70.2 % (42-78) 08/11/19 05:43 Sodium 134.0 mmol/L (137-145) L 08/12/19 21:23 Potassium 4.3 mmol/L (3.6-5.0) 08/12/19 21:23 Chloride 106 mmol/L (98-107) 08/12/19 21:23 Carbon Dioxide 19 mmol/L (22-30) L 08/12/19 21:23 Anion Gap 9 (5-19) 08/12/19 21:23 BUN 7 mg/dL (7-20) 08/12/19 21:23 Creatinine 0.64 mg/dL (0.52-1.25) 08/12/19 21:23 Est GFR ( Amer) > 60 (>60) 08/12/19 21:23 Est GFR (MDRD) Non-Af > 60 (>60) 08/12/19 21:23 Glucose 79 mg/dL (75-110) 08/12/19 21:23 Uric Acid 6.8 mg/dL (2.5-6.2) H 08/11/19 05:43 Calcium 9.8 mg/dL (8.4-10.2) 08/12/19 21:23 Total Bilirubin 0.6 mg/dL (0.2-1.3) 08/12/19 21:23 Direct Bilirubin 0.1 mg/dL (0.0-0.4) 08/12/19 21:23 Neonat Total Bilirubin Not Reportable 08/12/19 21:23 Neonat Direct Bilirubin Not Reportable 08/12/19 21:23 Neonat Indirect Bili Not Reportable 08/12/19 21:23 AST 22 U/L (14-36) 08/12/19 21:23 ALT 13 U/L (<35) 08/12/19 21:23 Alkaline Phosphatase 108 U/L (38-126) 08/12/19 21:23 Lactate Dehydrogenase 124 U/L (120-246) 08/11/19 05:43 Total Protein 5.6 g/dL (6.3-8.2) L 08/12/19 21:23 Albumin 3.0 g/dL (3.5-5.0) L 08/12/19 21:23 Urine Color YELLOW 08/10/19 14:15 Urine Appearance CLOUDY 08/10/19 14:15 Urine pH 6.0 (5.0-9.0) 08/10/19 14:15 Ur Specific [place] 1.010 08/10/19 14:15 Urine Protein 100 mg/dL (NEGATIVE) H 08/10/19 14:15 Urine Glucose (UA) NEGATIVE mg/dL (NEGATIVE) 08/10/19 14:15 Urine Ketones NEGATIVE mg/dL (NEGATIVE) 08/10/19 14:15 Urine Blood NEGATIVE (NEGATIVE) 08/10/19 14:15 Urine Nitrite NEGATIVE (NEGATIVE) 08/10/19 14:15 Urine Bilirubin NEGATIVE (NEGATIVE) 08/10/19 14:15 Urine Urobilinogen NEGATIVE mg/dL (<2.0) 08/10/19 14:15 Ur Leukocyte Esterase LARGE (NEGATIVE) H 08/10/19 14:15 Urine WBC (Auto) 165 /HPF 08/10/19 14:15 Urine RBC (Auto) 2 /HPF 08/10/19 14:15 Urine Bacteria (Auto) 1+ /HPF 08/10/19 14:15 Urine WBC Clumps OCC /HPF 08/10/19 14:15 Squamous Epi Cells Auto 10 /HPF 08/10/19 14:15 Urine Mucus (Auto) OCC /LPF 08/10/19 14:15 Urine Creatinine 110.7 mg/dL (16-327) 08/10/19 14:15 Protein/Creatinin Ratio 2.8 mg/mg (0.0-0.2) H 08/10/19 14:15 Urine Total Protein 314.6 mg/dL (<12) H 08/10/19 14:15 Urine Ascorbic Acid 20 (NEGATIVE) H 08/10/19 14:15 Urine Opiates Screen NEGATIVE 08/10/19 14:15 Urine Methadone Screen NEGATIVE 08/10/19 14:15 Ur Barbiturates Screen NEGATIVE 08/10/19 14:15 Ur Phencyclidine Scrn NEGATIVE 08/10/19 14:15 Ur Amphetamines Screen NEGATIVE 08/10/19 14:15 U Benzodiazepines Scrn NEGATIVE 08/10/19 14:15 Urine Cocaine Screen NEGATIVE 08/10/19 14:15 U Marijuana (THC) Screen NEGATIVE 08/10/19 14:15 RPR NONREACTIVE (NONREACTIVE) 08/11/19 05:43 Blood Type O POSITIVE 08/10/19 15:06 Antibody Screen NEGATIVE 08/10/19 15:06 Plan Health Concerns: continue BP meds, low salt diet Goals: RTC 1 week, goal is to titrate off BP meds at 6 weks
[2019-08-16] MEDS: SENNOSIDES/DOCUSATE 8.6-50 MG 1 EACH TABLET PO SCH (12:40)
[2019-08-16 14:04] VITALS: BP 142/96
--- NOTE | 2019-08-24 14:53 | Delivery Summary ---
Del Sum A-C Datetime Report Generated by CPN: 08/24/2019 14:53 DELIVERY PERSONNEL DELIVERY PERSONNEL: [id number] Delivery Doctor:: Dr. Azalia Hardwick Labor and Delivery Nurse:: Shelly Fish RNstock preparation supervisor Nurse:: Ilda Og RN Spinneret Cleaner/MONEY COUNTER: Elsie Green, ST MATERNAL INFORMATION Delivery Anesthesia: Epidural Medications After Delivery: Pitocin Drip 20 Units/1000ml NSS Estimated Blood Loss (ml): 250 Delivery QBL: 250 Maternal Complications: Other Other Maternal Complications: Preeclampsia Provider Comments: Called to patients room with complete cervical dilation and +3 station. Delivered after pushing through maternal contractions. After deliver of the head, a nuchal cord x1 was noted and easily reduced. The shoulder and the rest of the body delivered easily. Cord clamping delayed 30 seconds as infant was vigorous. Nasal and oral suctioned. LABOR SUMMARY EDC: 08/23/2019 00:00 No. Babies in Womb: 1 Attempted: No Labor Anesthesia: Epidural LABOR INFORMATION Reason for Induction: Pre-Eclampsia Onset of Labor: 08/12/2019 19:56 Complete Dilatation: 08/12/2019 23:55 Cervical Ripening Agents: Cervidil; Cytotec @ Cervical Ripening Agents: Cytotec @ 0.025 Cervical Ripening Agents: Cervidil Oxytocin: N/A Group B Beta Strep: POSITIVE Antibiotics # of Doses: 4 Antibiotics Time of Last Dose: 2238 Name of Antibiotic Given: PCN Steroids Given: None Reason Steroids Not Administered: Not Applicable MEMBRANES Membranes Rupture Method: Artificial Rupture of Membranes: 08/12/2019 19:56 Length of Rupture (hr): 4.27 Amniotic Fluid Color: Clear Amniotic Fluid Amount: Moderate Amniotic Fluid Odor: Normal STAGES OF LABOR Stage 1 hr: 3 Stage 1 min: 59 Stage 2 hr: 0 Stage 2 min: 17 Stage 3 hr: 0 Stage 3 min: 4 Total Time in Labor hr: 4 Total Time in Labor min: 20 VAGINAL DELIVERY Episiotomy: None Laceration #1: Perineal Laceration Extension #1: First Degree Other Laceration: Right labial laceration Laceration Repair: Yes Laceration Repair Note: Small first degree in the midline perineal that was 3-4 mm in length. A right labial laceration which was shallow was also resent. Both repaired with 2-0 chromic in a running fashion. Sponge Count Correct: Yes Sharps Count Correct: Yes CSECTION DELIVERY Primary Indication: N/A Secondary Indication: N/A CSection Incidence: N/A Labor: N/A Elective: N/A CSection Incision: N/A BABY A INFORMATION Infant Delivery Date/Time: 08/13/2019 00:12 Method of Delivery: Vaginal Method of Delivery: Vaginal Born in Route : No : N/A Forceps: N/A Vacuum Extraction: N/A Shoulder Dystocia : No PRESENTATION/POSITION BABY A Presentation: Cephalic Cephalic Presentation: Vertex Vertex Position: Right Occipital Anterior Breech Presentation: N/A PLACENTA INFORMATION BABY A Placenta Delivery Time : 08/13/2019 00:16 Placenta Method of Delivery: Spontaneous Placenta Method of Delivery: Spontaneous Placenta Status: Delivered SCORES BABY A Heart Rate 1 min: >100 bpm Resp Effort 1 min: Good Cry Reflex Irritability 1 min: Cough or Sneeze or Pulls Away Muscle Tone 1 min: Active Motion Color 1 min: Blue/Pale Resuscitation Effort 1 min: Tactile Stimulation SCORE 1 MIN: 8 Heart Rate 5 min: >100 bpm Resp Effort 5 min: Good Cry Reflex Irritability 5 min: Cough or Sneeze or Pulls Away Muscle Tone 5 min: Active Motion Color 5 min: Body [place], Extremities Blue Resuscitation Effort 5 min: Tactile Stimulation SCORE 5 MIN: 9 INFORMATION BABY A Gestational Age at Delivery: 38.3 Gestational Status: Early Term- 37- 38.6 Weeks Infant Outcome : Liveborn Condition : Stable Infant Sex: Male Infant Sex: Male IDENTIFICATION BABY A Infant Verification Date/Time: 08/13/2019 00:49 ID Band Number: [id number] Mother's Name Verified: Yes RN Verifying Infant: B. Ring RN _ K Abe RN WEIGHT/LENGTH BABY A Birthweight (gm): 3360 Infant Weight (lb): 7 Weight (oz): 7 Infant Length (in): 20.00 Length (cm): 50.80 CORD INFORMATION BABY A No. Cord Vessels: 3 Nuchal Cord : Around Neck x1, Loose Cord Blood Taken: Yes-For Eval (Mom's Blood Type - or O+) Suction: Mouth; Nose ASSESSMENT BABY A Skin to Skin: Yes BABY B INFORMATION : N/A SIGNATURES Signature: with User ID: Sherry Signature: with User ID: Sherry : with User ID: Noreene : with User ID: Noreene
== END 2019-08-16 15:15 | disposition home or self-care (01) | DRG 807 ==
LOC: LC 13:57 → 2S 16:56 → OBSVTOIN 08-11 18:01 → LR 08-11 18:05 → 2S 08-13 01:30
PROVIDERS: ADMIT Obstetrics & Gynecology; ATTEND Obstetrics & Gynecology
PROC: 3E0P7VZ Introduction of Hormone into Female Reproductive, Via Natural or Artificial Opening (ICD-10-PCS; 2019-08-11)
PROC: 10907ZC Drainage of Amniotic Fluid, Therapeutic from Products of Conception, Via Natural or Artificial Opening (ICD-10-PCS; 2019-08-12)
PROC: 10E0XZZ Delivery of Products of Conception, External Approach (ICD-10-PCS; principal; 2019-08-13)
PROC: 0HQ9XZZ Repair Perineum Skin, External Approach (ICD-10-PCS; 2019-08-13)
DX: O14.04 Mild to moderate pre-eclampsia, complicating childbirth (principal); Z37.0 Single live birth; O70.0 First degree perineal laceration during delivery; O69.81X0 Labor and delivery complicated by cord around neck, without compression, not applicable or unspecified; Z3A.38 38 weeks gestation of pregnancy; Z62.810 Personal history of physical and sexual abuse in childhood; Z91.5 Personal history of self-harm; O99.824 Streptococcus B carrier state complicating childbirth; Z28.21 Immunization not carried out because of patient refusal
CPT/HCPCS: 36415; 59025; 80053; 80307; 81001; 82570; 83615; 84156; 84550; 85025; 85027; 86592; 86850; 86900; 86901; G0378; J0360; J0696; J2370; J2540; J2590; J3010; J3490; J7060